=== PATIENT | female | born 1940 | race Caucasian/White ===

== ENCOUNTER → 2017-12-06 16:15 | Outpatient (REF) | payer MEDICARE, OTHER, SELFPAY ==
[2017-12-07 08:57] LABS: Color, Urine Yellow (Yellow); Glucose, Dipstick Normal (Normal); Ketone-Dipstick Negative (Negative); Leukocyte Esterase-Dipstick 100 /ul (Negative); Nitrite-Dipstick Negative (Negative); Occult Blood-Urine Negative /ul (Negative); Protein-Dipstick 100 mg/dl (Negative); Specific Gravity, Urine 1.015 (1.002-1.030); Urine Bilirubin Dipstick Negative (Negative); Urine Clarity Clear (Clear); Urine Urobilinogen Normal (Normal)
== END ==
DX: N39.0 Urinary tract infection, site not specified (principal)
CPT/HCPCS: 81002; 87077; 87086; 87088

== ENCOUNTER → 2018-02-20 18:05 | Outpatient (REF) | payer SELFPAY ==
[2018-02-20 19:28] LABS: Bacteria 0 SEEN /hpf (None Seen); Mucous, Urine 0 SEEN /hpf (<or=2+); Red Blood Cells-Urine 0 SEEN /hpf (0-5)
[2018-02-20 19:31] LABS: Color, Urine Yellow (Yellow); Glucose, Dipstick Normal (Normal); Ketone-Dipstick Negative (Negative); Leukocyte Esterase-Dipstick 500 /ul (Negative); Nitrite-Dipstick Negative (Negative); Occult Blood-Urine Negative /ul (Negative); Protein-Dipstick 100 mg/dl (Negative); Urine Bilirubin Dipstick Negative (Negative); Urine Clarity Sl. Cloudy (Clear); Urine Urobilinogen Normal (Normal)
[2018-02-20 19:37] LABS: Amorphous Sediment 1+ URATE; Squamous Epithelial Cells - UA 0-5 SEEN /hpf (5-10); White Blood Cells 10-25 SEEN /hpf (0-5)
== END ==
PROVIDERS: Visit Provider Family Medicine
DX: N39.0 Urinary tract infection, site not specified (principal)

== ENCOUNTER → 2018-05-20 05:00 | Outpatient (REF) | payer MEDICARE, OTHER, SELFPAY ==
[2018-05-20 08:31] LABS: AST(SGOT) 18 U/L (15-37); Alanine Aminotransfer ALT/SGPT 16 U/L (13-56); Anion Gap 7 (5-15); BUN 45 mg/dL (7-18); BUN/Creat Ratio 30.8 RATIO (10-20); Calcium,Total 8.5 mg/dL (8.5-10.1); Chloride 114 mmol/L (98-107); Cholesterol 170 mg/dL (200); Creatinine, Serum 1.46 mg/dL (0.55-1.02); EST Glomerular Filtration Rate 37 mL/min (>60); Est Glom Filt Rate - Afr Amer 45 mL/min (>60); Glucose 83 mg/dL (74-106); High Density Lipoprotein 62 mg/dL; Potassium 4.7 mmol/L (3.5-5.1); Sodium Level 147 mmol/L (136-145); Thyroid Stim Hormone (TSH) 2.36 uIU/mL (0.358-3.74); Triglycerides 66 mg/dL; Very Low Density Lipoprotein 13 mg/dL (5-40)
== END ==
LOC: OLS.BROOKB 05:00
PROVIDERS: Visit Provider Family Medicine
DX: E11.9 Type 2 diabetes mellitus without complications (principal); E78.5 Hyperlipidemia, unspecified
CPT/HCPCS: 36415; 80048; 80061; 83036; 84443; 84450; 84460

== ENCOUNTER → 2018-06-03 15:50 | Outpatient (REF) | payer MEDICARE, OTHER, SELFPAY ==
[2018-06-04 10:19] LABS: Color, Urine Yellow (Yellow); Glucose, Dipstick Normal (Normal); Ketone-Dipstick Negative (Negative); Leukocyte Esterase-Dipstick 500 /ul (Negative); Nitrite-Dipstick Negative (Negative); Occult Blood-Urine 25 /ul (Negative); Protein-Dipstick 100 mg/dl (Negative); Specific Gravity, Urine 1.015 (1.002-1.030); Urine Bilirubin Dipstick Negative (Negative); Urine Clarity Clear (Clear); Urine Urobilinogen Normal (Normal)
== END ==
LOC: OLS.BROOKB 15:50
PROVIDERS: Visit Provider Family Medicine
DX: N39.0 Urinary tract infection, site not specified (principal)
CPT/HCPCS: 81002; 87086; 87088

== ENCOUNTER → 2018-08-04 05:00 | Outpatient (REF) | payer MEDICARE, OTHER, SELFPAY ==
[2018-08-04 08:55] LABS: Absolute Lymphocyte Count 1.55 X10^3/ul (0.83-4.51); Absolute Neutrophil Count 3.7 X10^3/uL (2.0-7.7); Basophil# 0.04 X10^3/uL; Basophil% 0.7 % (0-1); Eosinophils% 4.9 % (0-5); Hematocrit 33.1 % (37-47); Hemoglobin 10.5 g/dl (12.0-15.0); Lymphocyte # 1.55 X10^3/ul (4.0); Lymphocyte % 25.3 % (19-41); Mean Corp Hgb Conc 31.7 g/gl (32-36); Mean Corpuscular Hgb 27.9 pg (27.0-32.0); Mean Corpuscular Volume 87.8 fL (81-99); Mean Platelet Vol. 11.3 fl (6.2-12.0); Monocyte# 0.56 X10^3/uL; Monocyte% 9.2 % (0-10); Neutrophil # 3.66 X10^3/uL (2.7-7.7); Neutrophil % 59.7 % (47-70); Platelet Count 182 K/mm3 (150-450); RBC Distribution Width CV 13.7 % (11.6-14.6); RBC Distribution Width SD 42.9 fl (35.1-43.9); Red Blood Count 3.77 M/mm3 (4.2-5.4); White Blood Count 6.1 K/mm3 (4.4-11.0)
[2018-08-04 08:59] LABS: POSITIVE COUNT NO; POSITIVE DIFFERENTIAL NO; POSITIVE MORPHOLOGY NO
[2018-08-04 09:14] LABS: ALB/GLOB Ratio 0.9 RATIO (0.9-2.4); AST(SGOT) 24 U/L (15-37); Alanine Aminotransfer ALT/SGPT 22 U/L (13-56); Albumin, Serum 3.1 g/dL (3.2-5.0); Alkaline Phosphatase 78 U/L (45-117); Anion Gap 8 (5-15); BUN 41 mg/dL (7-18); BUN/Creat Ratio 26.1 RATIO (10-20); Calcium,Total 8.7 mg/dL (8.5-10.1); Chloride 111 mmol/L (98-107); Creatinine, Serum 1.57 mg/dL (0.55-1.02); EST Glomerular Filtration Rate 34 mL/min (>60); Est Glom Filt Rate - Afr Amer 41 mL/min (>60); Globulin 3.6 g/dL (2.2-4.2); Glucose 107 mg/dL (74-106); Potassium 4.5 mmol/L (3.5-5.1); Protein, Total 6.7 g/dL (6.4-8.2); Sodium Level 144 mmol/L (136-145)
[2018-08-04 09:22] LABS: Vitamin D,25 Hydroxy 26.5 ng/mL (29.95-100.01)
== END ==
LOC: OLS.WHLTSB 05:00
PROVIDERS: Visit Provider Family Medicine
DX: R53.83 Other fatigue (principal); E55.9 Vitamin D deficiency, unspecified
CPT/HCPCS: 36415; 80053; 82306; 85025

== ENCOUNTER 2019-03-15 21:02 | Emergency (ER) | payer MEDICARE, OTHER, SELFPAY ==
[2019-03-15 21:03] VITALS: BP 211/73; PULSE 65; RESP 18; TEMP 36.9; O2SAT 97; BMI 34.2
--- NOTE | 2019-03-15 21:33 | RAD_ITS ---
STUDY: X-RAY - LEFT SHOULDER REASON FOR EXAM: Female, 78 years old. Injury TECHNIQUE: 2 view(s) of the shoulder. COMPARISON: None. FINDINGS: Comminuted fracture of the proximal humerus. Glenohumeral and acromioclavicular joints are intact. Soft tissue swelling. CABG clips. RAD/Shoulder min 2 Views IMPRESSION: Comminuted fracture of the proximal humerus. Electronically Signed: Saurabh Bustillos MD at 22:05 EDT Tel , Service support ,
--- NOTE | 2019-03-15 21:33 | RAD_ITS ---
STUDY: X-RAY - LEFT WRIST REASON FOR EXAM: Female, 78 years old. Injury TECHNIQUE: 3 view(s) of the wrist were obtained. COMPARISON: None. FINDINGS: Normal visualized distal radius and ulna. Normal radiocarpal articulation. Normal distal radioulnar articulation. Normal carpal bones. Normal carpal articulations. Normal carpometacarpal articulation of the thumb. Normal second through fifth carpometacarpal articulations. Normal visualized metacarpal bones. The soft tissue structures are unremarkable. RAD/Wrist min 3 Views IMPRESSION: No acute osseous injury is evident. Electronically Signed: Saurabh Bustillos MD at 22:05 EDT Tel , Service support ,
--- NOTE | 2019-03-15 21:33 | RAD_ITS ---
STUDY: X-RAY - LEFT ELBOW REASON FOR EXAM: Female, 78 years old. Injury and pain TECHNIQUE: 3 view(s) of the elbow. COMPARISON: None. FINDINGS: Normal visualized humerus, radius and ulna. Normal radiocapitellar and ulnotrochlear articulations. The soft tissue structures are unremarkable. RAD/Elbow min 3 Views IMPRESSION: No acute osseous injury is evident. Electronically Signed: Saurabh Bustillos MD at 22:04 EDT Tel , Service support ,
--- NOTE | 2019-03-15 22:40 | CT_ITS ---
STUDY: CT BRAIN WITHOUT CONTRAST REASON FOR EXAM: Female, 78 years old. Fall RADIATION DOSAGE (If Supplied By Facility): CTDIvol = ( 44.99 ) mGy, DLP = ( 745.49 ) mGycm TECHNIQUE: Transaxial CT imaging of the brain was performed without administration of intravenous contrast material. Individualized dose optimization techniques were used for this CT. COMPARISON: 11/28/2016 FINDINGS: Normal soft tissue structures. Normal calvarium. Bilateral lens replacements. Normal size ventricles and extra-axial spaces for the patient's age. There are areas of decreased attenuation within the white matter tracts of the supratentorial brain, consistent with microvascular disease changes. Age-related changes of the basal ganglia. Normal brainstem. Normal cerebellum. There is no intracranial hemorrhage. There are no findings of an acute ischemic infarction. Normal visualized paranasal sinuses. CT/Brain/Head without Contrast IMPRESSION: No fracture or intracranial hemorrhage. Electronically Signed: Saurabh Bustillos MD at 23:13 EDT Tel , Service support ,
--- NOTE | 2019-03-15 22:40 | CT_ITS ---
STUDY: CT CERVICAL SPINE WITHOUT CONTRAST REASON FOR EXAM: Female, 78 years old. Fall and hit head RADIATION DOSAGE (If Supplied By Facility): CTDIvol = ( 28.35 ) mGy, DLP = ( 543.32 ) mGycm TECHNIQUE: High resolution transaxial imaging was performed without contrast material. Sagittal and coronal images were reconstructed. Individualized dose optimization techniques were used for this CT. COMPARISON: None FINDINGS: Normal craniovertebral junction. Degenerative changes are present involving the atlantodental articulation. Normal odontoid process. Normal alignment. Diffuse degenerative disease is present. No acute fractures or dislocations are seen. Carotid calcifications. CT/Spine Cervical without Contras IMPRESSION: No acute osseous injury is evident. Comment: MRI is more sensitive than CT in detecting cord injury, ligament injury, and epidural hematoma. If there is continued clinical concern for any of these entities, MRI correlation should be considered if possible. Electronically Signed: Saurabh Bustillos MD at 23:17 EDT Tel , Service support ,
--- NOTE | 2019-03-15 22:41 | RAD_ITS ---
STUDY: X-RAY - RIGHT KNEE REASON FOR EXAM: Female, 78 years old. Fall and pain TECHNIQUE: 4 view(s) of the knee. COMPARISON: None. FINDINGS: Normal visualized distal femur. Normal visualized proximal tibia and fibula. Normal proximal tibiofibular articulation. Normal medial femorotibial compartment. Normal lateral femorotibial compartment. Normal patellofemoral articulation. Arterial calcifications. RAD/Knee 4 or More Views IMPRESSION: No acute osseous injury is evident. Electronically Signed: Saurabh Bustillos MD at 23:31 EDT Tel , Service support ,
[2019-03-15 22:52] VITALS: BP 239/58
[2019-03-15 22:53] VITALS: PULSE 69; RESP 18; O2SAT 98
--- NOTE | 2019-03-15 23:05 | RAD_ITS ---
STUDY: X-RAY - LEFT KNEE REASON FOR EXAM: Female, 78 years old. Fall and pain TECHNIQUE: 4 view(s) of the knee. COMPARISON: None. FINDINGS: Normal visualized distal femur. Normal visualized proximal tibia and fibula. Normal proximal tibiofibular articulation. There is mild degenerative arthrosis of the medial femorotibial compartment. Normal lateral femorotibial compartment. Normal patellofemoral articulation. Suprapatellar effusion. Arterial calcifications. RAD/Knee 4 or More Views IMPRESSION: No acute osseous injury is evident. Electronically Signed: Saurabh Bustillos MD at 23:32 EDT Tel , Service support ,
--- NOTE | 2019-03-15 23:10 | RAD_ITS ---
STUDY: X-RAY - LEFT HUMERUS REASON FOR EXAM: Female, 78 years old. Injury TECHNIQUE: 2 view(s) of the humerus. COMPARISON: None. FINDINGS: Comminuted fracture of the proximal humerus. Shoulder and elbow joint spaces are intact. Soft tissue swelling. RAD/Humerus min 2 Views IMPRESSION: Comminuted fracture of the proximal humerus. Electronically Signed: Saurabh Bustillos MD at 23:31 EDT Tel , Service support ,
[2019-03-15] MEDS: Acetaminophen 325 MG Tablet 650 MG PO (23:24)
--- NOTE | 2019-03-15 23:29 | NURSING ---
DR FRANCISCO AWARE OF BP
--- NOTE | 2019-03-15 23:47 | ED.DCSUM_ITS ---
- ER Visit Summary Date of Service: 03/15/19 Chief Complaint: Fall History of Present Illness: The patient is a 78 F with history of Alzheimer's dementia. Patient fell at the detention after getting out of the shower tonight. She states the floor was wet and she slipped. She is complaining of pain to her left arm. She does report striking her head. She did not lose consciousness. She is not on anticoagulants. Physical Examination: Blood pressure is 211/73, otherwise vitals normal. Patient lying in bed no acute distress. Head neck examination was no obvious external sign of trauma. No C-spine tenderness. Heart is regular rate and rhythm. lung sounds are clear. Chest wall is nontender. Abdomen is soft nontender. Upper extremity examination reveals tenderness of the left shoulder without sign of dislocation. She has strong distal pulses. No focal tenderness over the elbow or wrist. Lower extremity examination was mild tenderness along the medial right knee. No ecchymosis or abrasion. Test Results: Left shoulder x-rays reveal comminuted proximal humerus fracture. Left elbow x-rays reveal no fracture. Left wrist x-rays revealed no fracture. CT head shows no fracture or hemorrhage. CT C-spine shows no acute osseous injury. Left humerus shows only the comminuted fracture of the proximal humerus with no other fracture site identified. Bilateral knee x-rays show no acute osseous injury. Emergency Department Course and Treatment: Patient was given Tylenol for pain. On repeat examination her blood pressure remained elevated. She did reportedly get both doses of clonidine that she is scheduled for today. She is given an additional dose of clonidine 0.1 mg. Patient is placed in a sling and swath. Test results are discussed with patient as well as daughter at bedside. She will be discharged back to her ECF with instructions to closely monitor her blood pressure over the next several days. She is referred to Dr. Alexandra for orthopedic follow-up. Treatment Plan: [] Disposition: Discharge Impression: 1. Mechanical fall 2. Left proximal humerus fracture This note was generated with [employer] dictation software. It may contain incorrect words, spelling, and punctuation that were not noted in review of the chart prior to signing ED Disposition - Plan for ED Patient: Disposition: Home or Assisted Living Instructions: ED Fx Upper Ext Referrals: Bernardo Alexandra MD [Primary Care Provider] - 3-5 Days Omar Alexandra MD [STAFF PHYSICIAN] - 1 Week Additional Instructions: Please check blood pressure twice a day for the next several days. Keep Dr YVONNE Argueta updated. Tylenol as needed for pain. Keep sling and swathe in place to support arm.
[2019-03-15] MEDS: cloNIDine HCl 0.1 MG Tablet PO (23:51)
[2019-03-16 00:03] VITALS: BP 212/66; PULSE 65; RESP 18; O2SAT 97
--- NOTE | 2019-03-16 00:06 | NURSING ---
ATTEMPTED TO CALL REPORT. IT WENT TO ANSWERING MACHINE. REPORT GIVEN TO THAT
== END 2019-03-16 00:07 | disposition home or self-care (01) ==
PROVIDERS: Emergency Provider Emergency Medicine; Family Provider Family Medicine; PCP Family Medicine
DX: S42.202A Unspecified fracture of upper end of left humerus, initial encounter for closed fracture (principal); W18.2XXA Fall in (into) shower or empty bathtub, initial encounter; Y93.9 Activity, unspecified; Y92.121 Bathroom in nursing home as the place of occurrence of the external cause; Y99.9 Unspecified external cause status; G30.9 Alzheimer's disease, unspecified; F02.80 Dementia in other diseases classified elsewhere, unspecified severity, without behavioral disturbance, psychotic disturbance, mood disturbance, and anxiety; I12.9 Hypertensive chronic kidney disease with stage 1 through stage 4 chronic kidney disease, or unspecified chronic kidney disease; N18.9 Chronic kidney disease, unspecified; K21.9 Gastro-esophageal reflux disease without esophagitis; E78.00 Pure hypercholesterolemia, unspecified
CPT/HCPCS: 70450; 72125; 73030; 73060; 73080; 73110; 73564; 99285

== ENCOUNTER → 2019-03-20 05:30 | Outpatient (REF) | payer MEDICARE, OTHER, SELFPAY ==
[2019-03-15 21:03] VITALS: BMI 34.2
[2019-03-20 09:14] LABS: Color, Urine Yellow (Yellow); Glucose, Dipstick Normal (Normal); Ketone-Dipstick Negative (Negative); Leukocyte Esterase-Dipstick 500 /ul (Negative); Nitrite-Dipstick Negative (Negative); Occult Blood-Urine 25 /ul (Negative); Protein-Dipstick 100 mg/dl (Negative); Urine Bilirubin Dipstick Negative (Negative); Urine Clarity Sl. Cloudy (Clear); Urine Urobilinogen Normal (Normal)
== END ==
LOC: OLS.WHLTSB 05:30
PROVIDERS: Visit Provider Family Medicine
DX: R53.83 Other fatigue (principal)
CPT/HCPCS: 81002; 87086; 87088

== ENCOUNTER → 2019-03-24 07:25 | Outpatient (REF) | payer MEDICARE, OTHER, SELFPAY ==
[2019-03-15 21:03] VITALS: BMI 34.2
[2019-03-24 09:00] LABS: Absolute Lymphocyte Count 0.87 X10^3/ul (0.83-4.51); Absolute Neutrophil Count 10.7 X10^3/uL (2.0-7.7); Basophil# 0.02 X10^3/uL; Basophil% 0.2 % (0-1); Eosinophil# 0.08 X10^3/uL; Eosinophils% 0.6 % (0-5); Hematocrit 24.8 % (37-47); Hemoglobin 7.9 g/dl (12.0-15.0); Lymphocyte # 0.87 X10^3/ul (4.0); Lymphocyte % 6.6 % (19-41); Mean Corp Hgb Conc 31.9 g/gl (32-36); Mean Corpuscular Hgb 27.6 pg (27.0-32.0); Mean Corpuscular Volume 86.7 fL (81-99); Monocyte# 1.51 X10^3/uL; Monocyte% 11.5 % (0-10); Neutrophil # 10.65 X10^3/uL (2.7-7.7); Neutrophil % 80.9 % (47-70); Platelet Count 346 K/mm3 (150-450); RBC Distribution Width CV 14.5 % (11.6-14.6); RBC Distribution Width SD 45.9 fl (35.1-43.9); Red Blood Count 2.86 M/mm3 (4.2-5.4); White Blood Count 13.2 K/mm3 (4.4-11.0)
[2019-03-24 09:03] LABS: Differential Indicated SCAN CRITERIA MET; POSITIVE COUNT NO; POSITIVE DIFFERENTIAL YES; POSITIVE MORPHOLOGY NO
[2019-03-24 09:45] LABS: Anion Gap 11 (5-15); BUN 104 mg/dL (7-18); BUN/Creat Ratio 16.6 RATIO (10-20); Calcium,Total 8.2 mg/dL (8.5-10.1); Chloride 108 mmol/L (98-107); Creatinine, Serum 6.26 mg/dL (0.55-1.02); EST Glomerular Filtration Rate 7 mL/min (>60); Est Glom Filt Rate - Afr Amer 8 mL/min (>60); Glucose 234 mg/dL (74-106); Potassium 5.2 mmol/L (3.5-5.1); Sodium Level 142 mmol/L (136-145); Thyroid Stim Hormone (TSH) 1.26 uIU/mL (0.358-3.74)
[2019-03-24 09:46] LABS: Anisocytosis 1+; Platelet Estimate ADEQUATE (ADEQ); Platelet Morphology LARGE; Polychromasia RARE
[2019-03-24 13:14] VITALS: BMI 30.4
== END ==
LOC: OLS.WHLTSB 07:25
PROVIDERS: Visit Provider Family Medicine
DX: F05 Delirium due to known physiological condition (principal)
CPT/HCPCS: 36415; 80048; 84443; 85025

== ENCOUNTER 2019-03-24 13:14 | Emergency (ER) | payer MEDICARE, OTHER, SELFPAY ==
[2019-03-24 13:14] VITALS: BP 113/70; PULSE 95; RESP 14; TEMP 36.9; O2SAT 95; BMI 30.4
--- NOTE | 2019-03-24 13:40 | EKG12_ITS ---
Test Reason : CONFUSION Blood Pressure : / mmHG Vent. Rate : 095 BPM Atrial Rate : 095 BPM P-R Int : 172 ms QRS Dur : 078 ms QT Int : 358 ms P-R-T Axes : 023 009 205 degrees QTc Int : 449 ms Normal sinus rhythm with sinus arrhythmia Nonspecific ST and T wave abnormality Abnormal ECG Confirmed by SONIDO TAPIA ([id number]), newspaper editor managing SCOTT PINZON ([id number]) on 03/27/2019 1:55:45 PM Referred By: PARK Confirmed By:SONIDO TAPIA
[2019-03-24] MEDS: 0.9% Normal Saline 1,000 ML 1000 ML IV (14:42)
[2019-03-24 15:00] LABS: Bacteria 0 SEEN /hpf (None Seen); Mucous, Urine 0 SEEN /hpf (<or=2+); Red Blood Cells-Urine 0 SEEN /hpf (0-5)
[2019-03-24 15:14] LABS: Color, Urine Yellow (Yellow); Glucose, Dipstick Normal (Normal); Ketone-Dipstick 5 mg/dl (Negative); Leukocyte Esterase-Dipstick 25 /ul (Negative); Nitrite-Dipstick Negative (Negative); Occult Blood-Urine Negative /ul (Negative); Protein-Dipstick Negative (Negative); Urine Clarity Clear (Clear); Urine Urobilinogen Normal (Normal)
[2019-03-24 15:16] LABS: Lactic Acid 1.8 mmol/L (0.4-2.0)
--- NOTE | 2019-03-24 15:17 | ED.RN ---
lab resulted trop 3.94, physician aware
[2019-03-24 15:28] LABS: Urine Bilirubin Dipstick 1 mg/dL (Negative)
[2019-03-24 15:29] LABS: Squamous Epithelial Cells - UA 0-5 SEEN /hpf (5-10); White Blood Cells 0-5 SEEN /hpf (0-5)
--- NOTE | 2019-03-24 15:47 | ED.VISSUMM ---
- ER Visit Summary Date of Service: 03/24/19 Chief Complaint: [Confusion] History of Present Illness: The patient is a 78 F [presents the ER with increased confusion today. Patient has history of dementia and is a very poor historian. Patient apparently today more combative and had to be given Haldol. Patient also had blood work performed today that showed a significant worsening in her kidney function and patient was noted to be anemic. Patient was sent to the ER for further evaluation. Patient denies any chest pain or shortness of breath. She denies any abdominal pain. Daughter states that patient is DNR [employer] arrest and they do not want any type of surgical intervention or aggressive interventions. Their thought was that we could hydrate the patient to see if her kidney function would improve just fluids. Daughter states that the nursing staff has not noted any blood in the patient's stool. Patient has not had any fevers. Patient did have a fall recently and fractured her left arm. Patient was evaluated by orthopedics yesterday in the office.] Physical Examination: [HEENT-PERRLA, EOMI. Cranial nerves II through XII grossly intact. TMs clear. Mucous membranes dry t. No adenopathy. Cardiovascular-regular rate and rhythm without murmur or ectopy Lungs-clear to auscultation, chest wall stable without crepitus or subcu emphysema Abdomen-normoactive bowel sounds, soft, nontender, no rebound or rigidity, no peritoneal signs. Extremities-intact ?4, normal range of motion, normal pulses. Patient has sling to left arm.] Test Results: [Blood work performed today at the office showed a white blood cell count 13.2, hemoglobin 7.9, hematocrit 25, placed 346. Chemistry showed sodium 142, potassium 5.2, chloride 108, CO2 23, glucose 234, BUN 104, creatinine 6.26 and TSH was 1.26. Urinalysis today was unremarkable. Troponin was elevated 3.9. Lactate was 1.8. EKG obtained here shows sinus rhythm with ventricular rate 95 bpm with some nonspecific ST changes and some subtle ST depression laterally. Patient also had a Hemoccult of her stool as when she got up to the bedside commode she felt lightheaded and dizzy and she had what appeared like reddish-orange stool that tested Hemoccult positive.] Emergency Department Course and Treatment: [Case was discussed with family members who do want just conservative measures and no heroic measures. They are not interested in any type of cardiac interventions or surgeries. Dr. Az Robledo spoke with the family and they are amenable to hospice care. Hospice will evaluate patient in the emergency department.] Treatment Plan: [Evaluate by hospice] Disposition: [Transfer to hospice care] Impression: [Acute renal failure Non-ST elevation MT Rectal bleeding Anemia Increased confusion] This note was generated with [employer] dictation software. It may contain incorrect words, spelling, and punctuation that were not noted in review of the chart prior to signing ED Disposition - Plan for ED Patient: Referrals: Bernardo Alexandra MD [Primary Care Provider] -
[2019-03-24 15:51] VITALS: BP 128/90; PULSE 91; RESP 20; O2SAT 97
[2019-03-24 17:40] VITALS: BP 126/74; PULSE 90; RESP 16
[2019-03-24 20:21] VITALS: BP 121/74; PULSE 89; RESP 17; O2SAT 96
== END 2019-03-24 20:24 ==
PROVIDERS: Emergency Provider Emergency Medicine; Family Provider Family Medicine; PCP Family Medicine
DX: N17.9 Acute kidney failure, unspecified (principal); I21.9 Acute myocardial infarction, unspecified; K62.5 Hemorrhage of anus and rectum; D64.9 Anemia, unspecified; R41.0 Disorientation, unspecified; Z66 Do not resuscitate; E11.9 Type 2 diabetes mellitus without complications; I10 Essential (primary) hypertension; K21.9 Gastro-esophageal reflux disease without esophagitis; Z95.1 Presence of aortocoronary bypass graft
CPT/HCPCS: 81001; 82274; 83605; 84484; 86850; 86900; 87040; 93005; 96360; 96361; 99284; J7030; A4216